=== PATIENT | male | born 1940 | race Asian ===

== ENCOUNTER 2016-10-27 10:39 | Inpatient (IN) | payer OTHER ==
[2016-10-27] MEDS ORDERED: ONDANSETRON 4 MG/2 ML VIAL ONE ×2 (10:50→14:14)
--- NOTE | 2016-10-27 10:52 | EDPHY ---
H & P Stated Complaint: LEFT FOREARM DEFORMITY Time Seen by Provider: 10/27/16 10:43 HPI/ROS: CHIEF COMPLAINT: Left forearm deformity post foosh HISTORY OF PRESENT ILLNESS: 76-year-old male arrives via private vehicle complaining of acute left forearm deformity, pain and puncture wound volar aspect after he was playing with his grandchildren, sustained a mechanical trip and fall landing on his outstretched left hand and has a noted deformity to the distal forearm with a laceration on the volar aspect.No head injury. No midline C-spine pain or injury. No pelvic pain or injury. Last oral intake was at 9:00 a.m. REVIEW OF SYSTEMS: A ten point review of systems was performed and is negative with the exception of the items mentioned in the HPI PAST MEDICAL & SURGICAL HISTORY: History of cardiac stenting. Hypertension. SOCIAL HISTORY:visiting from [place]. PHYSICAL EXAM (Prior to examination, patient consented to physical exam, hands were washed and my usual and customary physical exam procedures followed) 1) GENERAL: Well-developed, well-nourished, alert and oriented. Appears well, smiling 2) HEAD: Normocephalic, atraumatic 3) HEENT: Pupils equal, round, reactive to light bilaterally. Sclera anicteric. 4) NECK: Full range of motion, no meningeal signs. 5) LUNGS: Clear auscultation bilaterally, no wheezes, no rhonchi, no retractions. 6) HEART: Regular rate and rhythm, no murmur, no heave, no gallop. 7) ABDOMEN: No guarding, no rebound, no focal tenderness, 8) MUSCULOSKELETAL: Left upper extremity: Midshaft deformity with 2.5 cm laceration volar aspect. Radial ulnar median nerve function intact distally. 9) BACK: No CVA tenderness. 10) SKIN: No rash, no petechiae. 11) Psychiatric: Patient is oriented X 3, there is no agitation. DIFFERENTIAL DIAGNOSIS: in no particular include but limited to fracture, sprain, open fracture - Personal History Current Tetanus/Diphtheria Vaccine: Unsure Current Tetanus Diphtheria and Acellular Pertussis (TDAP): Unsure - Medical/Surgical History Hx Asthma: No Hx Chronic Respiratory Disease: No Hx Diabetes: No Hx Cardiac Disease: Yes Hx Renal Disease: No Hx Cirrhosis: No Hx Alcoholism: No Hx HIV/AIDS: No Hx Splenectomy or Spleen Trauma: No Other PMH: ANGIOPLASTY 2 STENTS - Social History Smoking Status: Never smoked Constitutional: Initial Vital Signs Temperature (C) 36.9 C 10/27/16 10:46 Heart Rate 112 H 10/27/16 10:46 Respiratory Rate 18 10/27/16 10:46 Blood Pressure 178/110 H 10/27/16 10:46 O2 Sat (%) 97 10/27/16 10:46 O2 Delivery Mode Room Air Allergies/Adverse Reactions: No Known Allergies Allergy (Unverified 10/27/16 10:46) Home Medications: Medication Instructions Recorded Clodrel 1 tab PO HS 10/27/16 Herbals/Supplements -Info Only 1 ea PO DAILY 10/27/16 Rosuvastatin Calcium [Crestor 10mg 10 mg PO HS 10/27/16 (RX)] Telmisartan/Amlodipine 1 tab PO DAILY 10/27/16 [Telmisartan-Amlodipine 40-5 mg] Medical Decision Making - Diagnostics Imaging Results: Imaging Impressions Forearm X-Ray 10/27/16 10:43 Impression: 1. Acute displaced, angulated, and rotated mid shaft radius and ulnar diaphyseal fractures. 2. Age indeterminate distal ulna fracture. Chest X-Ray 10/27/16 10:45 Impression: Negative. No pneumothorax or acute fracture. Elbow X-Ray 10/27/16 12:17 Impression: Normal elbow. No elbow fracture or dislocation. Forearm X-Ray 10/27/16 12:17 Impression: Rotation of the mid shaft radius and ulnar fractures precludes optimal AP and true lateral views. Fracture fragments remain displaced angulated and rotated since earlier today. ED Course/Re-evaluation: Discussed case with secondary supervising physician Dr. Schroeder in the ER after evaluating patient. Orthopedics will be consulted for open fracture of the radius and ulna. The family has medications from [place] which are not home they will bring them back as they note that he is on a blood thinner, name unknown. 11:45 a.m. Phone consultation with Dr. aSndro Langford 11:45 a.m. who will evaluate the patient 12:17 p.m.: Phone call from GUERA Langford who requests repeat forearm x- ray and elbow x-ray 12:40 p.m.: Pharmacist has consulted and the family brought the medications. Patient is taking Plavix and aspirin 12:47 p.m.: Consultation with GUERA Langford who requests hospitalist admit patient. 12:54 p.m.: Phone consultation with hospitalist Fartun, admit to Dr. Pérez - Data Points Laboratory Results: Laboratory Results 10/27/16 10:50 10/27/16 10:50 10/27/16 10/27/16 10/27/16 10:50 10:50 10:50 WBC 8.27 10^3/uL 10^3/uL (3.80-9.50) RBC 5.24 10^6/uL 10^6/uL (4.40-6.38) Hgb 14.9 g/dL g/dL (13.7-17.5) Hct 41.8 % % (40.0-51.0) MCV 79.8 fL L fL (81.5-99.8) MCH 28.4 pg pg (27.9-34.1) MCHC 35.6 g/dL g/dL (32.4-36.7) RDW 13.5 % % (11.5-15.2) Plt Count 268 10^3/uL 10^3/uL (150-400) MPV 8.3 fL L fL (8.7-11.7) Neut % (Auto) 52.4 % % (39.3-74.2) Lymph % (Auto) 31.2 % % (15.0-45.0) Giles % (Auto) 9.7 % % (4.5-13.0) Eos % (Auto) 5.3 % % (0.6-7.6) Baso % (Auto) 1.0 % % (0.3-1.7) Nucleat RBC Rel Count 0.0 % % (0.0-0.2) Absolute Neuts (auto) 4.34 10^3/uL 10^3/uL (1.70-6.50) Absolute Lymphs (auto) 2.58 10^3/uL 10^3/uL (1.00-3.00) Absolute Monos (auto) 0.80 10^3/uL 10^3/uL (0.30-0.80) Absolute Eos (auto) 0.44 10^3/uL H 10^3/uL (0.03-0.40) Absolute Basos (auto) 0.08 10^3/uL 10^3/uL (0.02-0.10) Absolute Nucleated RBC 0.00 10^3/uL 10^3/uL (0-0.01) Immature Gran % 0.4 % % (0.0-1.1) Seg Neutrophils % 48 % % Lymphocytes % 41 % % Monocytes % 4 % % Eosinophils % 6 % % Basophils % 1 % % Immature Gran # 0.03 10^3/uL 10^3/uL (0.00-0.10) Absolute Seg Neuts 3.97 10^/uL 10^/uL (1.70-6.50) Absolute Lymphocytes 3.39 10^3/uL H 10^3/uL (1.00-3.00) Absolute Monocytes 0.33 10^3/uL 10^3/uL (0.30-0.80) Absolute Eosinophils 0.50 10^3/uL H 10^3/uL (0.03-0.40) Absolute Basophils 0.08 10^3/uL 10^3/uL (0.02-0.10) RBC/WBC/PLT Morphology NORMAL (NORMAL) Atypical Lymphocytes 2+ H Platelet Estimate ADEQUATE (ADEQ) Smear Review By Pending PT 15.7 SEC H SEC (12.0-15.0) INR 1.25 H (0.83-1.16) APTT 28.1 SEC SEC (23.0-38.0) Sodium 129 mEq/L L mEq/L (134-144) Potassium 4.2 mEq/L mEq/L (3.5-5.2) Chloride 92 mEq/L L mEq/L (97-110) Carbon Dioxide 21 mEq/l L mEq/l (22-31) Anion Gap 16 mEq/L mEq/L (8-16) BUN 9 mg/dL mg/dL (7-23) Creatinine 0.7 mg/dL mg/dL (0.7-1.3) Estimated GFR > 60 Glucose 207 mg/dL H mg/dL (70-100) Calcium 9.9 mg/dL mg/dL (8.5-10.4) Medications Given: Discontinued Medications Fentanyl (Sublimaze) 75 mcg IVP EDNOW ONE Stop: 10/27/16 12:35 Last Admin: 10/27/16 12:43 Dose: Not Given Cefazolin Sodium/Dextrose (Ancef 1 Gm (Premix)) 50 mls @ 200 mls/hr IV EDNOW ONE PRN Reason: Protocol Stop: 10/27/16 10:59 Last Admin: 10/27/16 11:00 Dose: 50 mls Morphine Sulfate (Morphine) 2 mg IVP EDNOW ONE Stop: 10/27/16 11:01 Last Admin: 10/27/16 11:00 Dose: 2 mg Morphine Sulfate (Morphine) 2 mg IVP EDNOW ONE Stop: 10/27/16 12:51 Last Admin: 10/27/16 13:57 Dose: 2 mg Ondansetron HCl (Zofran) 4 mg IVP EDNOW ONE Stop: 10/27/16 11:02 Last Admin: 10/27/16 10:59 Dose: 4 mg Departure - Departure Disposition: [facility] Inpatient Acute Clinical Impression: Open fracture of left radius and ulna Qualifiers: Encounter type: initial encounter Open fracture type: open type I or II Qualified Code(s): S52.92XB - Unspecified fracture of left forearm, initial encounter for open fracture type I or II; S52.202B - Unspecified fracture of shaft of left ulna, initial encounter for open fracture type I or II Condition: Fair
[2016-10-27] MEDS ORDERED: ONDANSETRON 4 MG/2 ML VIAL IVP ONE (11:01)
[2016-10-27 11:05] LABS: % IMMATURE GRANULYOCYTES 0.4 % (0.0-1.1); ABSOLUTE IMMATURE GRANULOCYTES 0.03 10^3/uL (0.00-0.10); ADD DIFF? NO; ADD MORPH? NO; ADD SCAN? YES; ATYPICAL LYMPHOCYTE FLAG 10 (0-99); FRAGMENT RBC FLAG 0 (0-99); HEMATOCRIT 41.8 % (40.0-51.0); HEMOGLOBIN 14.9 g/dL (13.7-17.5); LEFT SHIFT FLG 0 (0-99); LIPEMIA HEMOLYSIS FLAG 90 (0-99); MEAN CELL HEMOGLOBIN 28.4 pg (27.9-34.1); MEAN CELL HEMOGLOBIN CONCENTR. 35.6 g/dL (32.4-36.7); MEAN CELL VOLUME 79.8 fL (81.5-99.8); MEAN PLATELET VOLUME 8.3 fL (8.7-11.7); PLATELET CLUMPS FLAG 20 (0-99); PLATELET COUNT 268 10^3/uL (150-400); RED BLOOD CELL COUNT 5.24 10^6/uL (4.40-6.38); RED CELL DISTRIBUTION WIDTH 13.5 % (11.5-15.2)
[2016-10-27 11:15] LABS: INR 1.25 (0.83-1.16); PROTIME(PATIENT) 15.7 SEC (12.0-15.0)
[2016-10-27 11:16] LABS: APTT 28.1 SEC (23.0-38.0)
[2016-10-27 11:27] LABS: ANION GAP 16 mEq/L (8-16); CALCIUM 9.9 mg/dL (8.5-10.4); CARBON DIOXIDE 21 mEq/l (22-31); CHLORIDE 92 mEq/L (97-110); CREATININE 0.7 mg/dL (0.7-1.3); GLOMERULAR FILTRATION RATE > 60; GLUCOSE 207 mg/dL (70-100); POTASSIUM 4.2 mEq/L (3.5-5.2); SODIUM 129 mEq/L (134-144)
--- NOTE | 2016-10-27 11:40 | CPEKG ---
Heart Rate: 99 RR Interval: 606 P-R Interval: 244 QRSD Interval: 80 QT Interval: 356 QTC Interval: 457 P [place]: 67 QRS [place]: 30 T Wave [place]: 153 EKG Severity - ABNORMAL ECG - EKG Impression: SINUS RHYTHM EKG Impression: FIRST DEGREE AV BLOCK EKG Impression: ABNORMAL T, CONSIDER ISCHEMIA, LATERAL LEADS Electronically Signed By: Alvaro Ballesteros 31-Oct-2016 15:51:24
[2016-10-27 11:43] LABS: SCAN POSITIVE
[2016-10-27 11:46] LABS: PLATELET ESTIMATE ADEQUATE (ADEQ)
[2016-10-27] MEDS ORDERED: fentaNYL 100 MCG/2 ML INJ IVP ONE (12:34)
[2016-10-27] MEDS ORDERED: BUPIVACAINE/EPI 0.5% 30 ML SDV ONE (12:49)
[2016-10-27] MEDS ORDERED: ONDANSETRON DISINTEGRATING 4 MG TAB PO PRN (13:49)
[2016-10-27] MEDS ORDERED: ONDANSETRON 4 MG/2 ML VIAL IVP PRN (13:49)
[2016-10-27] MEDS ORDERED: oxyCODONE IR 5 MG TAB PO PRN (13:49)
--- NOTE | 2016-10-27 14:05 | PDANEPAE ---
ANE Past Medical History - Cardiovascular History Hx Hypertension: Yes Hx Arrhythmias: No Hx Chest Pain: No Hx Coronary Artery / Peripheral Vascular Disease: Yes Hx CHF / Valvular Disease: No Hx Palpitations: No Cardiovascular History Comment: Stent x2, 2 months ago. - Pulmonary History Hx COPD: No Hx Asthma/Reactive Airway Disease: No Hx Recent Upper Respiratory Infection: No Hx Oxygen in Use at Home: No Hx Sleep Apnea: No - Endocrine History Hx Diabetes: No Hypothyroid: No Hyperthyroid: No Obesity: no ANE Patient History - Allergies Allergies/Adverse Reactions: No Known Allergies Allergy (Unverified 10/27/16 10:46) - Home Medications Home Medications: Aspirin 150mg 150 mg PO HS 10/27/16 [Last Taken 10/26/16] Clopidogrel Bisulfate [Clopidogrel] 75 mg PO HS 10/27/16 [Last Taken 10/26/16] Herbals/Supplements -Info Only 1 ea PO DAILY 10/27/16 [Last Taken Unknown] Rosuvastatin Calcium [Crestor 10mg (RX)] 10 mg PO HS 10/27/16 [Last Taken ] Telmisartan/Amlodipine [Telmisartan-Amlodipine 40-5 mg] 1 tab PO DAILY 10/27/16 [Last Taken 10/27/16] - NPO status NPO Since - Liquids (Date): 10/27/16 NPO Since - Liquids (Time): 09:00 NPO Since - Solids (Date): 10/27/16 NPO Since - Solids (Time): 09:00 - Smoking Hx Smoking Status: Never smoked ANE Labs/Vital Signs - Labs Result Diagrams: 10/27/16 10:50 10/27/16 10:50 - Vital Signs Blood Pressure: 183/103 Heart Rate: 111 Respiratory Rate: 16 O2 Sat (%): 98 Height: 62 cm Weight: 74 kg
[2016-10-27] MEDS ORDERED: fentaNYL 100 MCG/2 ML INJ ONE ×2 (14:12→15:55)
[2016-10-27] MEDS ORDERED: PROPOFOL 200 MG/20 ML VIAL ONE (14:13)
[2016-10-27] MEDS ORDERED: METOCLOPRAMIDE 10 MG/2 ML VIAL ONE (14:14)
[2016-10-27] MEDS ORDERED: ceFAZolin 1 GM VIAL ONE (14:15)
[2016-10-27] MEDS ORDERED: MIDAZOLAM 2 MG/2 ML VIAL ONE (14:17)
--- NOTE | 2016-10-27 14:17 | GHP ---
[f rep st] HISTORY AND PHYSICAL DATE OF ADMISSION: 10/27/2016 CHIEF COMPLAINT: Fall. HISTORY OF PRESENT ILLNESS: A 76-year-old male with history of coronary artery disease on aspirin a nd Plavix presents after a fall. He was playing with his grandkids, running slowly after them, slip ped, fell to the left hitting his left elbow on the ground. He immediately noted that his forearm w as bent in an awkward way. He had severe pain there. His son attempted to hold it in place and spl int it. He has a history of coronary artery disease. He had a coronary artery stent placed two months ago. I looked the stent up, and this is a drug-eluting stent. He gets no chest pain with ambulation, is typically quite active and able to obtain more than 4 mets. PAST MEDICAL/SURGICAL HISTORY: 1. Coronary artery disease. 2. Hypertension. MEDICATIONS: Include: 1. Telmisartan. 2. Plavix. 3. Aspirin. 4. Statin. ALLERGIES: No known drug allergies. FAMILY HISTORY: No coronary artery disease. SOCIAL HISTORY: He lives in [facility]. He is visiting his son he has never drunk or smoked. REVIEW OF SYSTEMS: A 10-point review of systems is conducted and is negative except per HPI. PHYSICAL EXAM: VITAL SIGNS: Blood pressure 186/88, heart rate 100, respiration rate 18, saturating 94% on room air. Temperature is 36.4. In general, Mr. Escoto is a pleasant man who is resting comf ortably in bed in mild distress. HEENT shows him to be normocephalic, atraumatic. CARDIOVASCULAR: Shows him to be borderline tachycardic. There are no murmurs, rubs, or gallops. PULMONARY: Shows lungs clear to auscultation bilaterally. ABDOMEN: Soft, nontender, nondistended. SKIN: Showed n o rash. : No Jasso. NEUROLOGIC: Shows him to be alert and oriented x3. He is moving all extre mities. PSYCHIATRIC: Shows normal mood and affect. Extremities: Shows his left upper extremity t o have a small laceration on the ventral aspect of his forearm. He has a clear fracture at the mid point of his forearm. LABORATORIES: CBC is normal. INR is 1.25. Sodium is 129, bicarb is 21, glucose 207. DATA: 1. I personally viewed and interpreted his forearm x-ray. It shows an ulnar and radial fracture. 2. ECG which I personally viewed and interpreted shows sinus rhythm. He has first degree AV block. He has mild downsloping ST depression in V5, V6. 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 IMPRESSION AND PLAN: This is a 76-year-old male with coronary artery disease on dual anti-platelet therapy, presents with a fall with open forearm fracture. 1. Open forearm fracture: Discussed with patient as well as Dr. Langford. We will plan on operat yadi fixation today. There is a high risk of bleeding given his dual anti-platelet therapy, though t his should not be interrupted given he had a drug-eluting stent placed 2 months ago. In terms of hi s perioperative evaluation, he is able to attain 4 mets and is thus relatively low risk for cardiac complications intraoperatively via RCRI criteria. He is certainly higher risk as he does have evide nce of an infarct on his EKG as well as his dual anti-platelet therapy. I think it is at this point important to continue his dual anti-platelet therapy without interruption and proceed to the operat ing room expediently. Risks were discussed with both patient as well as his family. 2. Coronary artery disease: He is not on a beta tamara, will not start one perioperatively. We w ill continue his telmisartan, aspirin, Plavix, statin. Notably, he had a stent placed 2 months ago. 3. Hypertension: He is quite hypertensive now. I suspect this is essential in addition to worsene d by pain. We will continue his outpatient medications. 4. Hyponatremia: Unclear chronicity or etiology at this point. He received 1 L of fluid. We will recheck this tomorrow. If it does not resolve postoperatively, we will investigate further. 5. Hyperglycemia: I am told that he does not have a history of diabetes and had a blood test recen tly to prove this. We will recheck a flat fasting glucose in the morning. 6. Core status is full. He would like both his as well as his son to be decision makers if he is unable to make decisions. 7. Venous thromboembolism risk is moderate; however, we will defer Lovenox given his need for unint errupted dual anti-platelet therapy. Placed sequential compression devices. /[id number]/MODL
[2016-10-27] MEDS ORDERED: NALOXONE HCL 0.4 MG/ML INJ IVP PRN (15:55)
[2016-10-27] MEDS ORDERED: PROMETHAZINE HCL 25 MG/ML INJ IVP PRN (15:55)
[2016-10-27] MEDS: fentaNYL 100 MCG/2 ML INJ IVP PRN ×3 (15:55→16:50)
[2016-10-27] MEDS ORDERED: LABETALOL HCL 50 MG/10 ML SYR IVP PRN (15:55)
[2016-10-27] MEDS ORDERED: MEPERIDINE 25 MG/ML SYR IVP PRN (15:55)
[2016-10-27] MEDS ORDERED: fentaNYL 100 MCG/2 ML INJ IVP PRN (15:55)
[2016-10-27] MEDS ORDERED: LR 500 ML IV PRN (15:55)
--- NOTE | 2016-10-27 16:00 | POSTANESTH ---
Post Anesthetic Evaluation Cardiovascular Status: Normal, Stable Respiratory Status: Normal, Stable Level of Consciousness/Mental Status: Mildly Sleepy, Arousable Pain Control: Adequate, Prn Tx Ordered Nausea/Vomiting Control: Adequate, Prn Tx Ordered Complications Possibly Related to Anesthesia: None Noted
--- NOTE | 2016-10-27 16:01 | POSTOPPROG ---
Post Op Note Date of Operation: 10/27/16 Surgeon: Demetri Langford Electronic Warfare Linguist: Flor Langford PA-C Anesthesiologist: Dr. Shaw Anesthesia: GET(General Endotracheal) Pre-op Diagnosis: left forearm open radius and ulna fractures Post-op Diagnosis: same Procedure: ORIF left forearm Inf/Abcess present in the surg proc area at time of surgery?: No EBL: 50-100
[2016-10-27] MEDS ORDERED: LABETALOL HCL 50 MG/10 ML SYR ONE (16:23)
--- NOTE | 2016-10-27 16:41 | GOP ---
[f rep st] OPERATIVE REPORT DATE OF OPERATION: 10/27/2016 SURGEON: Angelo Langford MD GREASE REMOVER: Flor Langford, PAC. ANESTHESIA: LMA. PREOPERATIVE DIAGNOSIS: Left grade 1 open both-bone forearm fracture. POSTOPERATIVE DIAGNOSIS: Left grade 1 open both-bone forearm fracture. PROCEDURE PERFORMED: 1. Left open reduction and internal fixation of radius fracture. 2. Left open reduction and internal fixation of left ulnar fracture. FINDINGS: ESTIMATED BLOOD LOSS: Minimal. INDICATIONS: The patient is a 76-year-old gentleman who sustained a fall down on outstretched arm, sustained a grade 1 open left radius and ulnar shaft fracture. Risks and benefits were discussed wi th patient, including operative and nonoperative intervention. The patient wished to proceed with o perative intervention. Discussed specific risks related to his being on Plavix and aspirin. DESCRIPTION OF PROCEDURE: The patient identified in the preoperative holding area. His left upper extremity was marked. He was then brought back to the operating room. After induction of anesthesi a, he was positioned on the hand table. A nonsterile tourniquet was applied. He was then prepped a nd draped in the usual sterile fashion. A time-out was taken, confirming patient, laterality, proce dures, allergies, and antibiotic status, and then proceeded with a Ken approach to the radius vola rly, dissecting in between the BCR and the radial artery. Identified the bone and fracture area. T his was irrigated, reduced, and a 6-hole plate with 6 screws was placed, confirmed on fluoroscopic i maging. The tourniquet was released so we could check and make sure there was no damage to the radi al artery. There was no excess bleeding noted. We then closed the incision in layers and turned ou r attention to the ulna, made our ulnar incision between FCU and ECU and dissected down to bone. Re duced this, placed a 6-hole plate with 6 screws using the fluoroscopic imaging to confirm. The inci mike was copiously irrigated. We then copiously irrigated the open skin area on the volar aspect. A single stitch was placed here. We then closed the ulnar incision in layers and the patient was pl aced into a sterile dressing with a volar splint, locking the elbow. He was awakened and brought to PACU in good condition with a well-perfused limb. The plan is for the patient to be admitted for o bservation overnight due to his coronary artery disease, diabetes, hyponatremia, and high blood pres sure. He will likely be discharged home tomorrow as long as he meets criteria. We will continue an tibiotics for his open fracture. /[id number]/MODL
--- NOTE | 2016-10-27 18:12 | GCON ---
[f rep st] CONSULTATION ORTHOPEDIC CONSULTATION DATE OF CONSULTATION: 10/27/2016 Consultation from the emergency department, Orion Chio, for evaluation of a left both-bone forearm fracture, open. HISTORY: Patient is a 76-year-old male who fell on an outstretched arm, sustaining a left both-bone forearm fracture. He is currently taking Plavix and aspirin. He had a stent 2 months ago. He den ies pain in any other extremities. He denies any numbness or tingling in his left upper extremity. He does complain about pain in this extremity. PAST MEDICAL HISTORY: As above. MEDICATIONS: Please see medication list. PHYSICAL EXAMINATION: CONSTITUTIONAL: Patient in no acute distress. Pleasant and cooperative with exam. VITAL SIGNS: Stable, although his blood pressure and heart rate are elevated. MUSCULOSKELE MAURI: His left upper extremity Is examined. It is in a splint. He has sensation to light touch in the medial, ulnar, and radial nerve root distributions. He has intact intrinsic musculature. RADIOLOGY: X-rays are reviewed, which show displaced radius and ulnar shaft fractures. ASSESSMENT AND PLAN: Patient is a 76-year-old male with left open radius and ulna shaft fractures. Discussed operative and nonoperative interventions with the patient, and patient elected to proceed with operative intervention. Discussed specific risks with regard to Plavix and aspirin use. Joi ent expressed understanding, informed consent was obtained, and we will proceed to surgery. /[id number]/MODL
[2016-10-27] MEDS: CLOPIDOGREL PO SCH (20:24)
[2016-10-27] MEDS: ASPIRIN PO SCH (20:24)
[2016-10-27] MEDS: ROSUVASTATIN CALCIUM 10 MG TAB PO SCH (20:25)
[2016-10-27] MEDS ORDERED: CLOPIDOGREL BISULFATE 75 MG TAB PO SCH (21:00)
[2016-10-27] MEDS ORDERED: ASPIRIN PO SCH (21:00)
[2016-10-27] MEDS: ACETAMINOPHEN 325 MG TAB PO PRN (22:30)
[2016-10-28 05:00] LABS: % IMMATURE GRANULYOCYTES 0.3 % (0.0-1.1); ABSOLUTE IMMATURE GRANULOCYTES 0.03 10^3/uL (0.00-0.10); ADD DIFF? NO; ADD MORPH? NO; ADD SCAN? NO; ATYPICAL LYMPHOCYTE FLAG 0 (0-99); FRAGMENT RBC FLAG 0 (0-99); HEMATOCRIT 32.7 % (40.0-51.0); HEMOGLOBIN 11.8 g/dL (13.7-17.5); LEFT SHIFT FLG 0 (0-99); LIPEMIA HEMOLYSIS FLAG 90 (0-99); MEAN CELL HEMOGLOBIN 28.2 pg (27.9-34.1); MEAN CELL HEMOGLOBIN CONCENTR. 36.1 g/dL (32.4-36.7); MEAN CELL VOLUME 78.2 fL (81.5-99.8); MEAN PLATELET VOLUME 8.2 fL (8.7-11.7); PLATELET CLUMPS FLAG 0 (0-99); PLATELET COUNT 237 10^3/uL (150-400); RED BLOOD CELL COUNT 4.18 10^6/uL (4.40-6.38); RED CELL DISTRIBUTION WIDTH 13.3 % (11.5-15.2)
[2016-10-28 05:12] LABS: ANION GAP 9 mEq/L (8-16); CALCIUM 8.8 mg/dL (8.5-10.4); CARBON DIOXIDE 21 mEq/l (22-31); CHLORIDE 91 mEq/L (97-110); CREATININE 0.7 mg/dL (0.7-1.3); GLOMERULAR FILTRATION RATE > 60; GLUCOSE 144 mg/dL (70-100); POTASSIUM 4.2 mEq/L (3.5-5.2); SODIUM 121 mEq/L (134-144)
[2016-10-28] MEDS: CEPHALEXIN 500 MG CAP PO SCH ×3 (05:51→22:27)
[2016-10-28] MEDS: ACETAMINOPHEN 325 MG TAB PO PRN (05:51)
[2016-10-28] MEDS: TELMISARTAN 40 MG TAB PO SCH (08:58)
[2016-10-28] MEDS: amLODIPine BESYLATE 5 MG TAB PO SCH (08:58)
[2016-10-28] MEDS ORDERED: AMLODIPINE PO SCH (09:00)
[2016-10-28] MEDS ORDERED: TELMISARTAN PO SCH (09:00)
--- NOTE | 2016-10-28 10:35 | HOSPPROG ---
Hospitalist Progress Note Assessment/Plan: # radius/ulnar open fracture, POD#[address] Langford - keflex x 1 week - follow closely for bleeding given DAPT # severe hyponatremia - c/w SIADH - fluid restrict, Na tabs - recheck at noon # CAD s/p stents 2 months ago: no CP post-op - cont asa/plavix; no BB - likely d/t bradycardia - dc tele today # htn - still quite elevated, family reports this is baseline - will not change home meds at this time Subjective: s/p orif of rasius/ulnar fractures; no CP, SOB Objective: Vital Signs Temp Pulse Resp BP Pulse Ox 37.0 C 96 16 164/85 H 97 10/28/16 07:35 10/28/16 07:35 10/28/16 07:35 10/28/16 08:58 10/28/16 07:35 Laboratory Results 10/28/16 04:25 10/28/16 04:25 10/27/16 10/28/16 10/29/16 05:59 05:59 05:59 Intake Total 1450 Output Total 705 900 Balance 745 -900 PT 15.7 SEC (12.0-15.0) H 10/27/16 10:50 INR 1.25 (0.83-1.16) H 10/27/16 10:50 tele reviewed - slight bradycardia op note reviewed - Physical Exam Constitutional: no apparent distress, appears nourished Cardiovascular: regular rate and rhythym, no murmur, rub, or gallop Respiratory: no respiratory distress, no rales or rhonchi, clear to auscultation Gastrointestinal: normoactive bowel sounds, soft, non-tender abdomen, no palpable masses Musculoskeletal: other (L arm in splint; motor and sensation intact in hand) ICD10 Worksheet Patient Problems: Problems Problem Status Onset Open fracture of left radius and ulna Acute
--- NOTE | 2016-10-28 11:06 | SOAPPROG ---
SOAP Progress Note Assessment/Plan: Assessment: Peggy is doing well POD 1 s/p left radius and ulna ORIF 1) pain management: pain is well controlled on oral pain meds 2) VTE ppx: patient is on plavix and aspirin, monitor closely for compartment syndrome. no concern at this point 3) hyponatremia: Na 121 this morning, refer to hospitalist recommendations for management 4) NWB left upper extremity 5) sling for comfort 6) d/c planning: d/c to home when medically stable per hospitalist. F/u with Dr. Langford's office on 10/31/16 this week for incision check Plan: 10/28/16 11:03 Subjective: peggy is doing well today,states mild pain, denies SOB, and chest pain Objective: Vital Signs Temp Pulse Resp BP Pulse Ox 37.0 C 96 16 164/85 H 97 10/28/16 07:35 10/28/16 07:35 10/28/16 07:35 10/28/16 08:58 10/28/16 07:35 PT 15.7 SEC (12.0-15.0) H 10/27/16 10:50 INR 1.25 (0.83-1.16) H 10/27/16 10:50 LUE: NVI, splint on arm, mild pain ICD10 Worksheet Patient Problems: Problems Problem Status Onset Open fracture of left radius and ulna Acute
[2016-10-28 12:32] LABS: ANION GAP 11 mEq/L (8-16); CARBON DIOXIDE 21 mEq/l (22-31); CHLORIDE 88 mEq/L (97-110); CREATININE 0.6 mg/dL (0.7-1.3); GLOMERULAR FILTRATION RATE > 60; GLUCOSE 165 mg/dL (70-100); POTASSIUM 4.3 mEq/L (3.5-5.2); SODIUM 120 mEq/L (134-144)
[2016-10-28] MEDS: SODIUM CHLORIDE 1,000 MG TAB PO SCH ×2 (13:09→18:30)
[2016-10-28 20:14] LABS: ANION GAP 8 mEq/L (8-16); CALCIUM 8.9 mg/dL (8.5-10.4); CARBON DIOXIDE 21 mEq/l (22-31); CHLORIDE 90 mEq/L (97-110); CREATININE 0.6 mg/dL (0.7-1.3); GLOMERULAR FILTRATION RATE > 60; GLUCOSE 148 mg/dL (70-100); POTASSIUM 4.8 mEq/L (3.5-5.2)
[2016-10-28 20:17] LABS: SODIUM 119 mEq/L (134-144)
[2016-10-28] MEDS: CLOPIDOGREL PO SCH (22:27)
[2016-10-28] MEDS: ROSUVASTATIN CALCIUM 10 MG TAB PO SCH (22:27)
[2016-10-28] MEDS: ASPIRIN PO SCH (22:27)
[2016-10-29 04:57] LABS: % IMMATURE GRANULYOCYTES 0.4 % (0.0-1.1); ABSOLUTE IMMATURE GRANULOCYTES 0.03 10^3/uL (0.00-0.10); ADD DIFF? NO; ADD MORPH? NO; ADD SCAN? NO; ATYPICAL LYMPHOCYTE FLAG 10 (0-99); FRAGMENT RBC FLAG 0 (0-99); HEMATOCRIT 31.4 % (40.0-51.0); HEMOGLOBIN 11.5 g/dL (13.7-17.5); LEFT SHIFT FLG 10 (0-99); LIPEMIA HEMOLYSIS FLAG 90 (0-99); MEAN CELL HEMOGLOBIN 28.3 pg (27.9-34.1); MEAN CELL HEMOGLOBIN CONCENTR. 36.6 g/dL (32.4-36.7); MEAN CELL VOLUME 77.3 fL (81.5-99.8); MEAN PLATELET VOLUME 8.3 fL (8.7-11.7); PLATELET CLUMPS FLAG 10 (0-99); PLATELET COUNT 235 10^3/uL (150-400); RED BLOOD CELL COUNT 4.06 10^6/uL (4.40-6.38); RED CELL DISTRIBUTION WIDTH 13.2 % (11.5-15.2)
[2016-10-29 05:47] LABS: ANION GAP 9 mEq/L (8-16); CALCIUM 8.7 mg/dL (8.5-10.4); CARBON DIOXIDE 20 mEq/l (22-31); CHLORIDE 91 mEq/L (97-110); CREATININE 0.6 mg/dL (0.7-1.3); GLOMERULAR FILTRATION RATE > 60; GLUCOSE 132 mg/dL (70-100); POTASSIUM 4.3 mEq/L (3.5-5.2); SODIUM 120 mEq/L (134-144)
[2016-10-29] MEDS: CEPHALEXIN 500 MG CAP PO SCH ×3 (05:56→20:46)
[2016-10-29] MEDS: amLODIPine BESYLATE 5 MG TAB PO SCH (08:39)
[2016-10-29] MEDS: TELMISARTAN 40 MG TAB PO SCH (08:39)
[2016-10-29] MEDS: SODIUM CHLORIDE 1,000 MG TAB PO SCH ×3 (08:39→18:35)
--- NOTE | 2016-10-29 09:43 | SOAPPROG ---
SOAP Progress Note Assessment/Plan: Assessment: s/p ORIF BBFA fx POD2 doing well dressing changed dressing with expected drainage due to plavix and ASA use f/u in clinic Thnarinder, already scheduled Plan: 10/29/16 09:42 Objective: Vital Signs Temp Pulse Resp BP Pulse Ox 36.4 C 101 H 14 157/86 H 96 10/29/16 08:00 10/29/16 08:00 10/29/16 08:00 10/29/16 08:00 10/29/16 08:00 Laboratory Results 10/29/16 04:26 10/29/16 04:26 10/28/16 10/29/16 10/30/16 05:59 05:59 05:59 Intake Total 1315 Balance 1315 PT 15.7 SEC (12.0-15.0) H 10/27/16 10:50 INR 1.25 (0.83-1.16) H 10/27/16 10:50 ICD10 Worksheet Patient Problems: Problems Problem Status Onset Open fracture of left radius and ulna Acute
[2016-10-29] MEDS ORDERED: PNEUMOC 13-VAL CONJ-DIP CRM/PF 0.5 ML SYR IM ONE (10:32)
[2016-10-29 13:56] LABS: ANION GAP 10 mEq/L (8-16); CARBON DIOXIDE 20 mEq/l (22-31); CHLORIDE 92 mEq/L (97-110); CREATININE 0.6 mg/dL (0.7-1.3); GLOMERULAR FILTRATION RATE > 60; GLUCOSE 157 mg/dL (70-100); POTASSIUM 4.4 mEq/L (3.5-5.2); SODIUM 122 mEq/L (134-144)
--- NOTE | 2016-10-29 14:01 | HOSPPROG ---
Hospitalist Progress Note Assessment/Plan: Hospitalist Progress Note Assessment/Plan: 76y male, fall. Arm pain. First encounter, chart reviewed. # radius/ulnar open fracture, POD#[address] Langford - keflex x 1 week - follow closely for bleeding given DAPT # severe hyponatremia - c/w SIADH - fluid restrict, Na tabs - responding -recheck in am -likely home tomorrow # CAD s/p stents 2 months ago: no CP post-op - cont asa/plavix; no BB - likely d/t bradycardia - dc tele # htn - still elevated, family reports this is baseline - will not change home meds at this time - follow up outpt #Dispo -possibly in am if NA up a bit Subjective: Feeling well. Eager to go home. No pain. Objective: Vital Signs Temp Pulse Resp BP Pulse Ox 36.4 C 101 H 14 157/86 H 96 10/29/16 08:00 10/29/16 08:00 10/29/16 08:00 10/29/16 08:00 10/29/16 08:00 Laboratory Results 10/29/16 04:26 10/29/16 13:30 10/28/16 10/29/16 10/30/16 05:59 05:59 05:59 Intake Total 1315 Balance 1315 PT 15.7 SEC (12.0-15.0) H 10/27/16 10:50 INR 1.25 (0.83-1.16) H 10/27/16 10:50 - Physical Exam Constitutional: no apparent distress, appears nourished, not in pain Eyes: PERRL, anicteric sclera, EOMI Ears, Nose, Mouth, Throat: moist mucous membranes, hearing normal, ears appear normal Cardiovascular: regular rate and rhythym, No JVD, No edema Respiratory: no respiratory distress, no rales or rhonchi, reduced air movement Gastrointestinal: normoactive bowel sounds, No tenderness, No ascites Skin: warm, normal color, No erythema Musculoskeletal: full muscle strength, no joint effusions, pain with ROM Neurologic: AAOx3 Psychiatric: interacting appropriately, not anxious, not encephalopathic, thought process linear ICD10 Worksheet Patient Problems: Problems Problem Status Onset Open fracture of left radius and ulna Acute
[2016-10-29] MEDS: ROSUVASTATIN CALCIUM 10 MG TAB PO SCH (20:46)
[2016-10-29] MEDS: CLOPIDOGREL PO SCH (20:46)
[2016-10-29] MEDS: ASPIRIN PO SCH (20:46)
[2016-10-30 05:04] LABS: ANION GAP 8 mEq/L (8-16); CALCIUM 8.8 mg/dL (8.5-10.4); CARBON DIOXIDE 21 mEq/l (22-31); CHLORIDE 94 mEq/L (97-110); CREATININE 0.7 mg/dL (0.7-1.3); GLOMERULAR FILTRATION RATE > 60; GLUCOSE 129 mg/dL (70-100); POTASSIUM 4.4 mEq/L (3.5-5.2); SODIUM 123 mEq/L (134-144)
[2016-10-30] MEDS: CEPHALEXIN 500 MG CAP PO SCH ×3 (06:18→20:55)
--- NOTE | 2016-10-30 08:27 | HOSPPROG ---
Hospitalist Progress Note Assessment/Plan: 76y male, fall. Arm pain. First encounter, chart reviewed. # radius/ulnar open fracture, POD#[address] Langford - keflex x 1 week - follow closely for bleeding given DAPT -not requiring any pain medications # severe hyponatremia - c/w SIADH - fluid restrict, Na tabs - responding - TSH is 2.2/ normal chest chest xray -will ask Dr Higgins to get involved/concerned of other causes of etiology of low Na # CAD s/p stents 2 months ago: no CP post-op - cont asa/plavix; no BB - likely d/t bradycardia - dc tele # htn - 144/86 #Dispo: Pending/ appreciate Dr Higgins seeing Mr Escoto. Will hold dc due to low Na/ increase risk of falling. - Subjective: Mr Escoto is feeling well/ anxious for dc. Objective: Vital Signs Temp Pulse Resp BP Pulse Ox 36.6 C 97 16 144/86 H 95 10/30/16 07:25 10/30/16 07:25 10/30/16 07:25 10/30/16 07:25 10/30/16 07:25 Laboratory Results 10/29/16 04:26 10/30/16 04:24 10/29/16 10/30/16 10/31/16 05:59 05:59 05:59 Intake Total 1315 1180 Balance 1315 1180 PT 15.7 SEC (12.0-15.0) H 10/27/16 10:50 INR 1.25 (0.83-1.16) H 10/27/16 10:50 - Physical Exam Constitutional: no apparent distress, appears nourished, not in pain Eyes: PERRL Ears, Nose, Mouth, Throat: hearing normal Cardiovascular: regular rate and rhythym Respiratory: no respiratory distress Gastrointestinal: normoactive bowel sounds Skin: warm Musculoskeletal: other (good cms check on left hand) Neurologic: AAOx3 Psychiatric: interacting appropriately, not anxious ICD10 Worksheet Patient Problems: Problems Problem Status Onset Open fracture of left radius and ulna Acute
[2016-10-30] MEDS: amLODIPine BESYLATE 5 MG TAB PO SCH (08:44)
[2016-10-30] MEDS: TELMISARTAN 40 MG TAB PO SCH ×2 (08:45→13:28)
[2016-10-30] MEDS: SODIUM CHLORIDE 1,000 MG TAB PO SCH ×3 (08:45→17:09)
[2016-10-30 11:35] LABS: % SATURATION 10 % (20-55); TOTAL IRON BINDING CAPACITY 276 ug/dL (260-490)
--- NOTE | 2016-10-30 11:45 | GCON ---
[f rep st] CONSULTATION NEPHROLOGY CONSULTATION DATE OF CONSULTATION: 10/30/2016 REASON FOR CONSULTATION: Hyponatremia. 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, with a past medical history significant for coronary artery disease and hypertension, who now presents with severe hyponatremia. The history is obtained from the patient, who is an excellent historian, as well as the medical sharee rd and the medical staff. The patient is here visiting his son, who is an linux support engineer in [facility]. On the day of admission , he had been playing with his grandchildren when he had a mechanical fall and hit his left elbow on the ground. He was noted to have a compound fracture, and did ultimately undergo surgical repair mariela Langford. The patient tolerated this procedure well. He has not had significant pain, and i s not taking much in the way of pain medications. His hemodynamics have been stable. On admission, the patient's sodium level was 129. Postoperatively, this decreased to 121, and it ul timately radha of 119 on October 28, 2016. The patient has been placed on a 1500 mL per day fluid restr iction as well as sodium tablets. With this, his sodium is back to 123. In general, the patient be lieves he is completely asymptomatic relating to this. On history, the patient is a fairly spare eater and is a vegetarian. His weight has been stable and he does not believe there has been any changes in his overall condition or appetite. He has alread y had thyroid and adrenal studies done and these appeared unremarkable. Urine studies do reveal an elevated urine osmolality in the face of an elevated urine sodium. The patient has had a chest x-ra y, which appears normal. He has no smoking history. As related to the above issues, we are asked by the hospitalist service to assist the patient's gayathri l diagnosis and management. PAST MEDICAL HISTORY: 1. Coronary artery disease status post stenting 2 months ago. 2. Hypertension. SURGICAL HISTORY: Includes coronary angioplasty and stent placement. CURRENT MEDICATIONS: Tylenol p.r.n., Norvasc 5 mg daily, Keflex 500 mg q.8 hours, Zofran p.r.n., ox ycodone as needed, Crestor 10 mg daily, sodium chloride 1 g three times daily, Micardis 40 mg p.o. d aily. The patient has been on a 1500 mL per day fluid restriction. FAMILY HISTORY: Noncontributory. SOCIAL HISTORY: The patient lives near [place] with his . He is here visiting his son. He work s as a CPA. He does not smoke cigarettes or drink alcohol. He is a vegetarian. REVIEW OF SYSTEMS: The patient denies weight loss. He states his appetite is never robust, but thi s has not changed. He has not had fevers, chills or sweats. He denies headaches or visual disturba nces. He has occasional runny nose. He denies a sore throat. He has not had cough or shortness of breath. He denies chest pain or palpitations. He has chronic constipation. This has not changed. He does not have to urinate at night. He denies lower extremity edema. He denies numbness of fin gers or toes. He does not have skin rashes. There is no history of diabetes or thyroid disease. PHYSICAL EXAMINATION: GENERAL: At the time of exam, the patient is appropriate and alert. VITAL S IGNS: Temperature afebrile, pulse 97, blood pressure 144/86. EYES: Sclerae clear. OROPHARYNX: C lear. NECK: No lymphadenopathy or thyromegaly. LUNGS: Clear to auscultation bilaterally. CARDIO VASCULAR: Regular rate and rhythm, without gallops or rubs. ABDOMEN: Nontender. No organomegaly. : Deferred. RECTAL: Deferred. EXTREMITIES: No lower extremity edema. INTEGUMENT: Generall y clear. NEURO: No focal findings. LABORATORY STUDIES: Sodium 123, potassium 4.4, bicarb 21, creatinine 0.7, glucose 129. White count 7.98, hematocrit 31.4, platelet count 235. IMPRESSION AND PLAN: 1. Hyponatremia. The patient appears to have SIADH. I suspect we will not identify a cause for th is. His endocrine studies appeared normal. His chest x-ray appears normal and he does not have any history of systemic disease or any smoking. He does have a low MCV. It should be noted he was not really anemic on admission, but is now. Thus, these latter issues are related to blood loss during his surgery. Nevertheless, we will evaluate this further. I did review with the patient and his f amily the causes of hyponatremia, and we also discussed the pathophysiology of water handling in the body. All of their questions were answered. For now, we will work by decreasing fluid intake and increasing solute intake. I do not believe there is risk for overly rapid correction. We will tigh ten his fluid restriction for now and monitor. 2. Constipation. I will place the patient on a stool softener. This is chronic. 3. Microcytosis. The patient does have a low MCV. His hemoglobin, however, appeared normal on adm ission. I think it is unlikely he has gastrointestinal physiology that is severe enough to be causi ng his hyponatremia, but we will investigate further with iron stores and stool Hemoccults. Discharge planning: I did discuss with the patient the issues of coordination and increased risk of falls with hyponatremia. I did encourage him to stay here for some additional time while we are co rrecting this problem. Thank you for allowing us to participate in this gentleman's care. Will continue following closely with you. /[id number]/MODL
[2016-10-30] MEDS: ACETAMINOPHEN 325 MG TAB PO PRN (13:28)
[2016-10-30] MEDS: DOCUSATE SODIUM 100 MG CAP PO SCH ×2 (13:30→20:55)
[2016-10-30] MEDS: CLOPIDOGREL PO SCH (20:54)
[2016-10-30] MEDS: ASPIRIN PO SCH (20:54)
[2016-10-30] MEDS: ROSUVASTATIN CALCIUM 10 MG TAB PO SCH (20:55)
[2016-10-30 23:52] VITALS: BP 140/94; O2SAT 96
[2016-10-31 05:36] LABS: ANION GAP 10 mEq/L (8-16); CALCIUM 8.9 mg/dL (8.5-10.4); CARBON DIOXIDE 20 mEq/l (22-31); CHLORIDE 99 mEq/L (97-110); CREATININE 0.7 mg/dL (0.7-1.3); GLOMERULAR FILTRATION RATE > 60; GLUCOSE 135 mg/dL (70-100); POTASSIUM 4.5 mEq/L (3.5-5.2); SODIUM 129 mEq/L (134-144)
[2016-10-31] MEDS: CEPHALEXIN 500 MG CAP PO SCH (06:24)
[2016-10-31] MEDS: DOCUSATE SODIUM 100 MG CAP PO SCH (08:02)
[2016-10-31] MEDS: SODIUM CHLORIDE 1,000 MG TAB PO SCH (08:02)
[2016-10-31] MEDS: amLODIPine BESYLATE 5 MG TAB PO SCH (08:03)
[2016-10-31] MEDS: TELMISARTAN 40 MG TAB PO SCH (08:03)
[2016-10-31 08:19] VITALS: PULSE 94; RESP 16; TEMP 97.6
--- NOTE | 2016-10-31 09:15 | HOSPPROG ---
Hospitalist Progress Note Assessment/Plan: 76y male, fall. Arm pain. First encounter, chart reviewed. # radius/ulnar open fracture, POD#[address] Langford - keflex x 1 week - follow closely for bleeding given DAPT -not requiring any pain medications # severe hyponatremia - c/w SIADH - fluid restrict, Na tabs - responding - TSH is 2.2/ normal chest chest xray - Na level is now 129 # CAD s/p stents 2 months ago: no CP post-op - cont asa/plavix; no BB - likely d/t bradycardia - dc tele # htn - 140/94 #Dispo: dc home, cont salt tabs , to get labs done in 2 weeks Subjective: Mr espinosa is feeling well/ no complaints. Objective: Vital Signs Temp Pulse Resp BP Pulse Ox 36.4 C 94 16 140/94 H 96 10/31/16 08:00 10/31/16 08:00 10/31/16 08:00 10/31/16 08:03 10/31/16 08:00 Laboratory Results 10/29/16 04:26 10/31/16 04:44 10/30/16 10/31/16 11/01/16 05:59 05:59 05:59 Intake Total 1180 980 Balance 1180 980 PT 15.7 SEC (12.0-15.0) H 10/27/16 10:50 INR 1.25 (0.83-1.16) H 10/27/16 10:50 - Physical Exam Constitutional: no apparent distress, appears nourished, not in pain Eyes: PERRL Ears, Nose, Mouth, Throat: hearing normal Respiratory: no respiratory distress Skin: warm, other (left hand with good CMS/minimal swelling) Musculoskeletal: no muscle tenderness Neurologic: AAOx3 Psychiatric: interacting appropriately ICD10 Worksheet Patient Problems: Problems Problem Status Onset Open fracture of left radius and ulna Acute
--- NOTE | 2016-10-31 09:33 | SOAPPROG ---
SOAP Progress Note Assessment/Plan: Assessment:Plan: Hyponatremia-due to SIADH -much better -Na 129 this morning -continue salt tabs and fluid restriction -Na level in two weeks as outpatient -order given to patient -I will adjust therapies as outpatient depending on response -goal is to have normal sodium level -patient has increased risk of falls even with mild levels of hyponatremia -discussed in detail with patient and spouse 10/31/16 09:30 Subjective: stable overnite Objective: Vital Signs Temp Pulse Resp BP Pulse Ox 36.4 C 94 16 140/94 H 96 10/31/16 08:00 10/31/16 08:00 10/31/16 08:00 10/31/16 08:03 10/31/16 08:00 Laboratory Results 10/29/16 04:26 10/31/16 04:44 10/30/16 10/31/16 11/01/16 05:59 05:59 05:59 Intake Total 1180 980 Balance 1180 980 PT 15.7 SEC (12.0-15.0) H 10/27/16 10:50 INR 1.25 (0.83-1.16) H 10/27/16 10:50 Physical Exam - Physical Exam General Appearance: WD/WN, alert, no apparent distress EENT: normal ENT inspection Neck: normal inspection Respiratory: lungs clear, normal breath sounds, No respiratory distress Cardiac/Chest: regular rate, rhythm, No diastolic murmur, No systolic murmur Abdomen: normal bowel sounds Extremities: No swelling ICD10 Worksheet Patient Problems: Problems Problem Status Onset Open fracture of left radius and ulna Acute
--- NOTE | 2016-10-31 09:58 | GDS ---
[f rep st] DISCHARGE SUMMARY DISCHARGE DIAGNOSES: 1. Radius/ulnar open fracture, postop day #3 open reduction internal fixation with Dr. Langford. 2. Severe hyponatremia. 3. Coronary artery disease, status post stents 2 months ago, on aspirin and Plavix therapy. 4. Hypertension. CONSULTATIONS: 1. Dr. Sandro Langford. 2. Dr. Wilbur Higgins. HISTORY: The patient is a very nice 76-year-old male with a history of coronary artery disease, who presented after a fall. He was playing his grand kids when he slipped and fell, hitting his left elbow to the ground. He noticed his forearm was bent in an awkward way, and he had severe pain. He came to the hospital for further evaluation, and on 10/27/2016 he had a left open reduction and internal fixation of the radius fracture and left ulnar fracture. He has done very well with this. During his stay he had significant hyponatremia that was managed with fluid restriction and salt tabs. This is likely secondary to SIADH. He was seen and evaluated by Nephrology. He will follow up with them in 2 weeks. HOSPITAL COURSE: 1. Radius ulnar open fracture: He is postop day #[address] Langford. He will be on Keflex for a week. 2. Severe hyponatremia. This is consistent with SIADH. TSH is 2.2. His chest x-ray is stable. His sodium level is now 129. Will have him continue with fluid restriction and salt tabs at discharge. He will follow up with Dr. Aguirre in 2 weeks. 3. Coronary artery disease, status post stents 2 months ago. He is on aspirin and Plavix. Not on beta tamara, likely due to bradycardia. PENDING LABS AND TESTS: None. CONDITION AT DISCHARGE: Stable. Blood pressure is 140/94, respiratory rate is 16, pulse is 94, O2 sats on room air 96%. MEDICATIONS AT DISCHARGE: Please see the EMR. DISCHARGE INSTRUCTIONS: 1. Follow up with Dr. Langford as scheduled. 2. Take the salt tabs 3 times a day until he gets further evaluation with Dr. Aguirre. For now he will be on these for 2 weeks. Greater than 30 minutes discharging and coordinating care. /[id number]/MODL MTDD
== END 2016-10-31 11:13 | disposition home or self-care (01) | DRG 981 ==
LOC: F3N 17:00 → OBSVTOIN 10-28 10:29
PROVIDERS: ADMIT Student in an Organized Health Care Education/Training Program; ATTEND Internal Medicine
PROC: 0HQEXZZ Repair Left Lower Arm Skin, External Approach (ICD-10-PCS; principal; 2016-10-27 12:21)
PROC: 0PSJ04Z Reposition Left Radius with Internal Fixation Device, Open Approach (ICD-10-PCS; principal; 2016-10-27 12:21)
PROC: 0PSL04Z Reposition Left Ulna with Internal Fixation Device, Open Approach (ICD-10-PCS; principal; 2016-10-27 12:21)
DX: E22.2 Syndrome of inappropriate secretion of antidiuretic hormone (principal); S52.322B Displaced transverse fracture of shaft of left radius, initial encounter for open fracture type I or II; S52.222B Displaced transverse fracture of shaft of left ulna, initial encounter for open fracture type I or II; I25.10 Atherosclerotic heart disease of native coronary artery without angina pectoris; I10 Essential (primary) hypertension; R73.9 Hyperglycemia, unspecified; K59.00 Constipation, unspecified; Z95.5 Presence of coronary angioplasty implant and graft; Z79.02 Long term (current) use of antithrombotics/antiplatelets; Z79.01 Long term (current) use of anticoagulants; W01.0XXA Fall on same level from slipping, tripping and stumbling without subsequent striking against object, initial encounter; Y92.9 Unspecified place or not applicable
CPT/HCPCS: 96365; 97161-GP; 97165-GO; C1713; G0009; G0378; J0690; J2250; J2405; J2704; J2765; J3010

== ENCOUNTER 2018-09-30 15:19 | Inpatient (IN) | payer OTHER | END 2018-10-03 14:20 | disposition home or self-care (01) | LOC: F2W 19:42 ==